=== PATIENT | female | born 1990 | race Asian ===

== ENCOUNTER 2019-08-31 14:44 | Outpatient (CLI) | payer OTHER ==
[~2019-08-31] VITALS: Ht 157.5 cm; Wt 90.0 kg
[2019-08-31] MEDS ORDERED: BETAMETHASONE 6 MG/ML, 5ML IM ONE ×2 (14:50→15:00)
== END 2019-08-31 15:15 | disposition home or self-care (01) ==
LOC: LDOP 14:44
PROVIDERS: ATTEND Obstetrics & Gynecology Maternal & Fetal Medicine
DX: O26.893 Other specified pregnancy related conditions, third trimester (principal); Z3A.33 33 weeks gestation of pregnancy; Z11.59 Encounter for screening for other viral diseases
CPT/HCPCS: 96372; J0702; U0001

== ENCOUNTER 2019-09-01 14:47 | Inpatient (IN) | payer OTHER ==
[~2019-09-01] VITALS: Ht 157.5 cm; Wt 90.0 kg
[2019-09-01] MEDS ORDERED: BETAMETHASONE 6 MG/ML, 5ML IM ONE (15:00)
[2019-09-03] VITALS (8 sets, daily range): BP systolic 123–147; BP diastolic 81–95
[2019-09-03] MEDS ORDERED: SODIUM CITRATE/CITRIC ACID 30 ML UDC PO ONE (06:30)
[2019-09-03] MEDS ORDERED: LACTATED RINGERS 1,000 ML IVBOLUS ONE (06:30)
[2019-09-03] MEDS ORDERED: METOCLOPRAMIDE 5 MG/ML, 2ML IV ONE (06:30)
[2019-09-03] MEDS ORDERED: SODIUM CITRATE/CITRIC ACID 30 ML UDC ONE (06:37)
[2019-09-03] MEDS ORDERED: METOCLOPRAMIDE 5 MG/ML, 2ML ONE (06:37)
[2019-09-03] MEDS ORDERED: ACET-2065 PO (07:22)
[2019-09-03] MEDS ORDERED: ASPI-496 PO (07:22)
[2019-09-03] MEDS ORDERED: PREN1COM10 PO (07:22)
[2019-09-03] MEDS ORDERED: DIPH50CA62 PO (07:22)
[2019-09-03 07:43] LABS: MEAN CORPUSCULAR HEMOGLOBIN 31.6 pg (27.0-34.8); MEAN CORPUSCULAR HGB CONC 33.6 g/dL (32.4-35.8); MEAN CORPUSCULAR VOLUME 93.9 fL (80-100); MEAN PLATELET VOLUME 10.3 fL (7.4-10.4); PLATELET COUNT 163 x10^3/uL (130-400); RED BLOOD COUNT 3.86 x10^6/uL (3.82-5.3); RED CELL DISTRIBUTION WIDTH 14.9 % (9.6-15.2)
[2019-09-03 07:44] LABS: MD SCAN
[2019-09-03] MEDS ORDERED: FENTANYL PF 100 MCG/2ML ONE (07:45)
[2019-09-03 07:46] LABS: BASOPHILS # (AUTO) 0.02 x10^3/uL (0-0.1); BASOPHILS % (AUTO) 0 % (0-1); EOSINOPHILS # (AUTO) 0.01 x10^3/uL (0-0.4); EOSINOPHILS % (AUTO) 0 % (1-7); LYMPHOCYTES # (AUTO) 2.03 x10^3/uL (1-3.4); LYMPHOCYTES % (AUTO) 16 % (22-44); MONOCYTES # (AUTO) 1.13 x10^3/uL (0.2-0.8); MONOCYTES % (AUTO) 9 % (2-9); NEUTROPHILS # (AUTO) 9.85 x10^3/uL (1.8-6.8); NEUTROPHILS % (AUTO) 76 % (42-75)
[2019-09-03] MEDS ORDERED: OXYTOCIN 30U/ 0.9% NaCL 500ML 500 ML ONE (07:58)
[2019-09-03] MEDS ORDERED: OXYTOCIN 10 UNITS/ML, 1ML ONE ×5 (08:00→10:05)
[2019-09-03] MEDS ORDERED: CEFAZOLIN 1,000 MG ONE ×2 (08:01)
[2019-09-03] MEDS ORDERED: LACTATED RINGERS 1,000 ML IV SCH (08:30)
[2019-09-03] MEDS ORDERED: KETOROLAC 30 MG/1 ML ONE (09:25)
[2019-09-03] MEDS: LACTATED RINGERS 1,000 ML IV SCH ×6 (10:24→20:24)
[2019-09-03] MEDS ORDERED: FENTANYL PF 100 MCG/2ML IV PRN (10:30)
[2019-09-03] MEDS ORDERED: DIPHENHYDRAMINE 50 MG/ML, 1ML IVPush PRN (10:30)
[2019-09-03] MEDS ORDERED: METOCLOPRAMIDE 5 MG/ML, 2ML IVPush PRN (10:30)
[2019-09-03] MEDS ORDERED: CARBOPROST TROMETHAMINE 250 MCG/ML, 1ML IM PRN (10:30)
[2019-09-03] MEDS ORDERED: ONDANSETRON 2MG/ML, 2ML IV PRN (10:30)
[2019-09-03] MEDS ORDERED: LABETALOL 5MG/ML, 20ML IV PRN (10:30)
[2019-09-03] MEDS ORDERED: METHYLERGONOVINE 0.2 MG/ML IM PRN (10:30)
[2019-09-03] MEDS ORDERED: ONDANSETRON 2MG/ML, 2ML IVPush PRN (10:30)
[2019-09-03] MEDS ORDERED: EPHEDRINE 50 MG/ML, 1ML IVPush PRN (10:30)
[2019-09-03] MEDS ORDERED: OXYcodone 5 MG/5 ML ORAL.SOL UDC PO PRN (10:30)
[2019-09-03] MEDS: KETOROLAC 30 MG/1 ML IV SCH ×3 (10:30→22:14)
[2019-09-03] MEDS ORDERED: morphine SULFATE 10 MG/ML, 1ML IVPush PRN (10:30)
[2019-09-03] MEDS ORDERED: EPHEDRINE 50 MG/ML, 1ML IM PRN (10:30)
[2019-09-03] MEDS ORDERED: MISOPROSTOL 200 MCG TABLET PR PRN (10:30)
[2019-09-03] MEDS: OXYTOCIN 30U/ 0.9% NaCL 500ML 500 ML IV SCH ×2 (11:32→20:24)
[2019-09-03] MEDS: OXYcodone/APAP 5/325MG TABLET PO PRN ×2 (14:02→18:07)
[2019-09-03 17:31] LABS: BASOPHILS # (AUTO) 0.07 x10^3/uL (0-0.1); BASOPHILS % (AUTO) 1 % (0-1); EOSINOPHILS # (AUTO) 0.05 x10^3/uL (0-0.4); EOSINOPHILS % (AUTO) 0 % (1-7); LYMPHOCYTES # (AUTO) 2.44 x10^3/uL (1-3.4); LYMPHOCYTES % (AUTO) 17 % (22-44); MD NO; MEAN CORPUSCULAR HEMOGLOBIN 31.4 pg (27.0-34.8); MEAN CORPUSCULAR HGB CONC 33.7 g/dL (32.4-35.8); MEAN PLATELET VOLUME 10.4 fL (7.4-10.4); MONOCYTES # (AUTO) 1.17 x10^3/uL (0.2-0.8); MONOCYTES % (AUTO) 8 % (2-9); NEUTROPHILS # (AUTO) 10.45 x10^3/uL (1.8-6.8); NEUTROPHILS % (AUTO) 74 % (42-75); PLATELET COUNT 141 x10^3/uL (130-400); RED BLOOD COUNT 3.56 x10^6/uL (3.82-5.3); RED CELL DISTRIBUTION WIDTH 14.6 % (9.6-15.2)
[2019-09-03] MEDS: SIMETHICONE 80 MG CHEW TAB PO PRN (18:04)
[2019-09-03 19:10] LABS: ALANINE AMINOTRANSFERASE 18 U/L (12-78); ALBUMIN 1.9 g/dL (3.4-5.0); ANION GAP 7 mmol/L (5-15); CHLORIDE 112 mmol/L (98-107); CREATININE 0.76 mg/dL (0.55-1.02)
[2019-09-03 19:12] LABS: ALKALINE PHOSPHATASE 101 U/L (45-117); BILIRUBIN,TOTAL 0.2 mg/dL (0.2-1.0); TOTAL PROTEIN 5.3 g/dL (6.4-8.2)
[2019-09-03 20:42] LABS: CREATININE,URINE RANDOM 65.2 mg/dL
[2019-09-03 20:46] LABS: MICROSCOPIC INDICATED
[2019-09-03] MEDS: niFEDipine ER 60 MG TABLET.ER PO SCH (22:12)
[2019-09-03] MEDS: OXYcodone IR 5MG TABLET PO PRN (22:13)
[2019-09-03] MEDS: ACETAMINOPHEN 325 MG TABLET PO PRN (22:14)
[2019-09-03] MEDS: DOCUSATE 100 MG CAPSULE PO PRN (22:14)
[2019-09-04] MEDS: LACTATED RINGERS 1,000 ML IV SCH ×10 (02:24→22:37)
[2019-09-04] MEDS: KETOROLAC 30 MG/1 ML IV SCH ×4 (04:30→22:35)
[2019-09-04] MEDS: SIMETHICONE 80 MG CHEW TAB PO PRN ×2 (04:30→10:29)
[2019-09-04 04:35] VITALS: BP 130/73
[2019-09-04 05:15] LABS: BASOPHILS # (AUTO) 0.05 x10^3/uL (0-0.1); BASOPHILS % (AUTO) 0 % (0-1); EOSINOPHILS # (AUTO) 0.11 x10^3/uL (0-0.4); EOSINOPHILS % (AUTO) 1 % (1-7); LYMPHOCYTES # (AUTO) 2.69 x10^3/uL (1-3.4); LYMPHOCYTES % (AUTO) 16 % (22-44); MD NO; MEAN CORPUSCULAR HEMOGLOBIN 31.3 pg (27.0-34.8); MEAN CORPUSCULAR HGB CONC 33.7 g/dL (32.4-35.8); MEAN CORPUSCULAR VOLUME 92.8 fL (80-100); MEAN PLATELET VOLUME 10.2 fL (7.4-10.4); MONOCYTES # (AUTO) 1.19 x10^3/uL (0.2-0.8); MONOCYTES % (AUTO) 7 % (2-9); NEUTROPHILS % (AUTO) 76 % (42-75); PLATELET COUNT 136 x10^3/uL (130-400); RED BLOOD COUNT 3.84 x10^6/uL (3.82-5.3); RED CELL DISTRIBUTION WIDTH 14.5 % (9.6-15.2)
[2019-09-04 05:25] LABS: ALANINE AMINOTRANSFERASE 22 U/L (12-78); ALBUMIN 2.2 g/dL (3.4-5.0); ANION GAP 6 mmol/L (5-15); CALCIUM 8.1 mg/dL (8.5-10.1); CHLORIDE 110 mmol/L (98-107)
[2019-09-04 05:28] LABS: ALKALINE PHOSPHATASE 124 U/L (45-117); BILIRUBIN,TOTAL 0.5 mg/dL (0.2-1.0); CREATININE 0.77 mg/dL (0.55-1.02)
[2019-09-04] MEDS: OXYTOCIN 30U/ 0.9% NaCL 500ML 500 ML IV SCH ×3 (06:24→22:38)
[2019-09-04 07:40] VITALS: BP 125/83
[2019-09-04] MEDS: DOCUSATE 100 MG CAPSULE PO PRN (07:51)
[2019-09-04] MEDS: PRENATAL VIT/IRON/FA 1 EACH TABLET PO SCH (07:51)
[2019-09-04] MEDS: OXYcodone IR 5MG TABLET PO PRN ×4 (07:52→21:21)
[2019-09-04] MEDS ORDERED: niFEDipine ER 60 MG TABLET.ER PO SCH (09:00)
[2019-09-04 12:15] VITALS: BP 136/88
[2019-09-04 16:00] VITALS: BP 140/90
[2019-09-04 19:19] VITALS: BP 146/90
[2019-09-04] MEDS: niFEDipine ER 60 MG TABLET.ER PO SCH (21:21)
[2019-09-04] MEDS: ACETAMINOPHEN 325 MG TABLET PO PRN (21:21)
[2019-09-05] MEDS: KETOROLAC 30 MG/1 ML IV SCH (05:08)
[2019-09-05 08:10] VITALS: BP 125/74
[2019-09-05] MEDS: DOCUSATE 100 MG CAPSULE PO PRN ×2 (08:18→21:17)
[2019-09-05] MEDS: PRENATAL VIT/IRON/FA 1 EACH TABLET PO SCH (08:18)
[2019-09-05] MEDS: IBUPROFEN 600 MG TABLET PO PRN ×2 (15:09→21:17)
[2019-09-05] MEDS: OXYcodone/APAP 5/325MG TABLET PO PRN (15:09)
[2019-09-05 20:10] VITALS: BP 138/92
[2019-09-05] MEDS: niFEDipine ER 60 MG TABLET.ER PO SCH (21:17)
[2019-09-06] MEDS ORDERED: OXYC-302 PO (04:57)
[2019-09-06] MEDS ORDERED: DOCU-131 PO (04:57)
[2019-09-06] MEDS ORDERED: NIFE60TA13 PO (04:58)
[2019-09-06 05:15] VITALS: BP 135/75
[2019-09-06] MEDS: IBUPROFEN 600 MG TABLET PO PRN ×2 (05:31→12:18)
[2019-09-06 05:49] LABS: MEAN CORPUSCULAR HEMOGLOBIN 31.5 pg (27.0-34.8); MEAN CORPUSCULAR HGB CONC 33.8 g/dL (32.4-35.8); MEAN CORPUSCULAR VOLUME 93.3 fL (80-100); MEAN PLATELET VOLUME 9.5 fL (7.4-10.4); PLATELET COUNT 123 x10^3/uL (130-400); RED BLOOD COUNT 3.49 x10^6/uL (3.82-5.3); RED CELL DISTRIBUTION WIDTH 15.2 % (9.6-15.2)
[2019-09-06 06:09] LABS: BASOPHILS # (AUTO) 0.02 x10^3/uL (0-0.1); BASOPHILS % (AUTO) 0 % (0-1); EOSINOPHILS # (AUTO) 0.13 x10^3/uL (0-0.4); EOSINOPHILS % (AUTO) 1 % (1-7); LYMPHOCYTES # (AUTO) 2.57 x10^3/uL (1-3.4); LYMPHOCYTES % (AUTO) 16 % (22-44); MD SCAN; MONOCYTES # (AUTO) 0.67 x10^3/uL (0.2-0.8); MONOCYTES % (AUTO) 4 % (2-9); NEUTROPHILS # (AUTO) 13.21 x10^3/uL (1.8-6.8); NEUTROPHILS % (AUTO) 80 % (42-75)
[2019-09-06 06:37] LABS: ALBUMIN 2.2 g/dL (3.4-5.0); ANION GAP 8 mmol/L (5-15); CALCIUM 8.3 mg/dL (8.5-10.1); CHLORIDE 110 mmol/L (98-107)
[2019-09-06 06:42] LABS: ALANINE AMINOTRANSFERASE 26 U/L (12-78); ALKALINE PHOSPHATASE 103 U/L (45-117); BILIRUBIN,TOTAL 0.4 mg/dL (0.2-1.0); CREATININE 0.63 mg/dL (0.55-1.02); TOTAL PROTEIN 5.9 g/dL (6.4-8.2)
[2019-09-06 07:00] VITALS: BP 115/73
[2019-09-06] MEDS: PRENATAL VIT/IRON/FA 1 EACH TABLET PO SCH (09:00)
[2019-09-06] MEDS ORDERED: DIPH,PERTUSS(ACELL),TET VAC/PF NC IM-VACC ONE (11:43)
== END 2019-09-06 15:45 | disposition home or self-care (01) | DRG 788 ==
LOC: LDOP 14:47 → LDIP 09-03 06:19 → 2NW 09-03 12:45 → EDSTATUS 09-03 14:46
PROVIDERS: ADMIT Obstetrics & Gynecology Maternal & Fetal Medicine; ATTEND Obstetrics & Gynecology Maternal & Fetal Medicine
PROC: 10D00Z1 Extraction of Products of Conception, Low, Open Approach (ICD-10-PCS; principal; 2019-09-03)
PROC: 0T9B70Z Drainage of Bladder with Drainage Device, Via Natural or Artificial Opening (ICD-10-PCS; 2019-09-03)
DX: O36.5932 Maternal care for other known or suspected poor fetal growth, third trimester, fetus 2 (principal); O30.033 Twin pregnancy, monochorionic/diamniotic, third trimester; Z37.2 Twins, both liveborn; O14.05 Mild to moderate pre-eclampsia, complicating the puerperium; Z20.828 Contact with and (suspected) exposure to other viral communicable diseases; Z90.89 Acquired absence of other organs; Z3A.33 33 weeks gestation of pregnancy
CPT/HCPCS: 36415; 80053; 81001; 82570; 82803; 82962; 84156; 84550; 85025; 86592; 86850; 86900; 88307; G0378; J0690; J0702; J1885; J3010; J2590; J2765; J7120

== ENCOUNTER 2019-09-01 15:05 | Outpatient (CLI) | payer OTHER ==
[~2019-09-01] VITALS: Ht 157.5 cm; Wt 90.0 kg
[~2019-09-01 15:05] MED LIST: BETAMETHASONE 6 MG/ML, 5ML IM ONE
[2019-09-01 15:30] VITALS: BP 136/73
== END 2019-09-01 16:01 | disposition home or self-care (01) ==
LOC: LDOP 15:05
PROVIDERS: ATTEND Obstetrics & Gynecology Maternal & Fetal Medicine
DX: O62.9 Abnormality of forces of labor, unspecified (principal); O30.033 Twin pregnancy, monochorionic/diamniotic, third trimester; O36.5930 Maternal care for other known or suspected poor fetal growth, third trimester, not applicable or unspecified; Z3A.33 33 weeks gestation of pregnancy; Z90.89 Acquired absence of other organs
CPT/HCPCS: 59025; 96372; 99211; J0702; G0463